=== PATIENT | female | born 1995 | race Caucasian/White ===

== ENCOUNTER 2017-02-09 13:39 | Emergency (ER) | payer OTHER ==
[~2017-02-09] VITALS: Ht 170.2 cm; Wt 67.0 kg
[2017-02-09 13:55] VITALS: BP 128/82
[2017-02-09] MEDS ORDERED: PREDNISONE 20MG TABLET PO ONE (15:30)
[2017-02-09] MEDS ORDERED: LIDOCAINE HCL 1% 20ML VIAL (Pyxis) INJ INFIL ONE (15:30)
[2017-02-09] MEDS ORDERED: ACETAMINOPHEN 500MG TABLET PO ONE (15:30)
[2017-02-09] MEDS ORDERED: CEFTRIAXONE SODIUM 1 G/VIAL IM ONE (15:30)
== END 2017-02-09 18:00 | disposition home or self-care (01) ==
LOC: ER 16:46
DX: L03.116 Cellulitis of left lower limb (principal); L02.416 Cutaneous abscess of left lower limb; W57.XXXA Bitten or stung by nonvenomous insect and other nonvenomous arthropods, initial encounter; Y93.89 Activity, other specified; Y92.89 Other specified places as the place of occurrence of the external cause; Y99.8 Other external cause status
CPT/HCPCS: 81025; 96372; 99283; J0696; J3490; J7030; J7040; J7060; J7512; Z7610